=== PATIENT | female | born 2000 | race Two or more races ===

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

== ENCOUNTER 2020-06-07 09:02 | Observation (INO) | payer OTHER ==
[~2020-06-07] VITALS: Ht 154.9 cm; Wt 87.0 kg
[~2020-06-07 09:02] MED LIST: AZIT500T4 PO; HYDR-3165 PO; ONDA4TAB7 PO
[2020-06-07] MEDS ORDERED: CHARCOAL AQUA 25 GM/120 ML SUSPENSION. ONE (09:14)
[2020-06-07] MEDS ORDERED: CHARCOAL/SORBITOL 25 GM/120 ML SUSPENSION. ONE ×2 (09:15→09:23)
--- NOTE | 2020-06-07 09:26 | PHYS DOC ---
Past History Past Medical History: Anxiety, Depression, Fibromyalgia, Hypertension Past Surgical History: No Surgical History Smoking: Non-smoker Alcohol Use: None Drug Use: None Adult General Chief Complaint Chief Complaint: OVERDOSE HPI HPI Patient is a 19-year-old female presenting for overdose via ingestion. Onset was approximately 10 minutes prior to arrival at 0900 hrs. Patient was walking into our ER and ingested x13 60mg duloxetine tablets. States she lives at home with sister and sister's and kids. States she has tumultuous relationship with her sister. Past medical history includes fibromyalgia, depression, anxiety and PTSD. She has no prior suicidal attempts in the past. States she took said medications today and frustration, was not purposefully trying to end her life but rather, she wanted to " roll the dice". On evaluation, she is tearful, has ongoing thoughts of self-harm and SI. She self admits history of self harming behavior, has cut herself in the past and admits to bloodletting Review of Systems Review of Systems Fourteen body systems of review of systems have been reviewed. See HPI for pertinent positives and negative responses, other aguirre all other systems are negative, non-pertinent or non-contributory Current Medications Current Medications Current Medications Medications (Trade) Dose Ordered Sig/Gera Start Time Stop Time Status Last Admin Dose Admin Charcoal (Actidose-Aqua) 25 gm STK-MED ONCE 06/07/20 09:14 06/07/20 09:15 DC Allergies Allergies Allergies Coded Allergies Type Severity Reaction Last Updated Verified adhesive Allergy Severe 03/28/19 Yes phenylephrine Allergy Severe 03/28/19 Yes phenazopyridine Allergy Unknown DIARRHEA 03/28/19 Yes Physical Exam Physical Exam Constitutional: Well developed, well nourished, no acute distress, tearful, non- toxic appearance. HENT: Normocephalic, atraumatic, bilateral external ears normal, oropharynx moist, no oral exudates, nose normal. Eyes: PERRLA, EOMI, conjunctiva normal, no discharge. Neck: Normal range of motion, no tenderness, supple, no stridor. Cardiovascular: Heart rate regular, sinus rhythm, no murmurs rubs or gallops Lungs & Thorax: Bilateral breath sounds clear to auscultation Abdomen: Bowel sounds normal, soft, no tenderness, no masses, no pulsatile masses. Nonsurgical abdomen, no peritoneal signs Skin: Warm, dry, no erythema, no rash. Back: No tenderness, no CVA tenderness. Extremities: No tenderness, no cyanosis, no clubbing, ROM intact, no edema. Neurologic: Alert and oriented X 3, grossly normal motor & sensory function, no focal deficits noted. Psychologic: Tearful affect, depressed mood Current Patient Data Vital Signs Vital Signs Date Time Temp Pulse Resp B/P (MAP) Pulse Ox O2 Delivery O2 Flow Rate FiO2 06/07/20 09:02 98.2 125 16 167/83 (111) 99 Vital Signs Date Time Temp Pulse Resp B/P (MAP) Pulse Ox O2 Delivery O2 Flow Rate FiO2 06/07/20 09:02 98.2 125 16 167/83 (111) 99 Lab Results Laboratory Tests Test 06/07/20 09:18 06/07/20 09:35 06/07/20 09:41 06/07/20 09:47 White Blood Count 12.8 x10^3/uL Red Blood Count 4.00 x10^6/uL Hemoglobin 10.8 g/dL Hematocrit 32.9 % Mean Corpuscular Volume 82 fL Mean Corpuscular Hemoglobin 27 pg Mean Corpuscular Hemoglobin Concent 33 g/dL Red Cell Distribution Width 14.2 % Platelet Count 421 x10^3/uL Neutrophils (%) (Auto) 73 % Lymphocytes (%) (Auto) 18 % Monocytes (%) (Auto) 7 % Eosinophils (%) (Auto) 2 % Basophils (%) (Auto) 0 % Neutrophils # (Auto) 9.4 x10^3uL Lymphocytes # (Auto) 2.3 x10^3/uL Monocytes # (Auto) 0.9 x10^3/uL Eosinophils # (Auto) 0.2 x10^3/uL Basophils # (Auto) 0.1 x10^3/uL Sodium Level 140 mmol/L Potassium Level 3.4 mmol/L Chloride Level 104 mmol/L Carbon Dioxide Level 24 mmol/L Anion Gap 12 Blood Urea Nitrogen 9 mg/dL Creatinine 0.7 mg/dL Estimated GFR (Cockcroft-Gault) 107.8 BUN/Creatinine Ratio 13 Glucose Level 116 mg/dL Calcium Level 9.0 mg/dL Total Bilirubin 0.2 mg/dL Aspartate Amino Transf (AST/SGOT) 9 U/L Alanine Aminotransferase (ALT/SGPT) 22 U/L Alkaline Phosphatase 78 U/L Total Protein 7.2 g/dL Albumin 3.8 g/dL Albumin/Globulin Ratio 1.1 Salicylates Level < 2.8 mg/dL Salicylate Last Dose Date Unknown Salicylate Last Dose Time Unknown Acetaminophen Level < 2 mcg/mL Acetaminophen Last Dose Date Unknown Acetaminophen Last Dose Time Unknown Ethyl Alcohol Level < 10 mg/dL SARS-CoV-2 Antigen (Rapid) Negative Urine Collection Type Unknown Urine Color Yellow Urine Clarity Hazy Urine pH 6.0 Urine Specific [place] 1.015 Urine Protein Neg Urine Glucose (UA) Neg mg/dL Urine Ketones (Stick) Neg mg/dL Urine Blood Neg Urine Nitrite Neg Urine Bilirubin Neg Urine Urobilinogen Dipstick 0.2 mg/dL Urine Leukocyte Esterase Neg Urine RBC 1-2 /HPF Urine WBC 1-4 /HPF Urine Squamous Epithelial Cells Mod /LPF Urine Bacteria Mod /HPF Urine Opiates Screen Neg Urine Methadone Screen Neg Urine Barbiturates Neg Urine Phencyclidine Screen Neg Urine Amphetamine/Methamphetamine Neg Urine Benzodiazepines Screen Neg Urine Cocaine Screen Neg Urine Cannabinoids Screen Neg Urine Ethyl Alcohol Neg Bedside Urine HCG, Qualitative hcg negative Current Medications Medications (Trade) Dose Ordered Sig/Gera Route PRN Reason Start Time Stop Time Status Last Admin Dose Admin Charcoal (Actidose-Aqua) 25 gm STK-MED ONCE .ROUTE 06/07/20 09:14 06/07/20 09:15 DC Charcoal/Sorbitol (Actidose Sorbitol) 25 gm STK-MED ONCE .ROUTE 06/07/20 09:15 06/07/20 09:15 DC Sodium Chloride 1,000 ml @ 1,000 mls/hr 1X ONCE IV 06/07/20 09:30 06/07/20 10:29 DC 06/07/20 09:27 Charcoal/Sorbitol (Actidose Sorbitol) 25 gm STK-MED ONCE .ROUTE 06/07/20 09:23 06/07/20 09:23 DC Charcoal/Sorbitol (Actidose Sorbitol) 25 gm 1X ONCE PO 06/07/20 09:30 06/07/20 09:31 DC 06/07/20 09:32 Sodium Chloride 1,000 ml @ 1,000 mls/hr 1X ONCE IV 06/07/20 10:30 06/07/20 11:29 DC 06/07/20 10:40 Lorazepam (Ativan Inj) 2 mg 1X ONCE IVP 06/07/20 10:45 06/07/20 10:46 DC 06/07/20 10:40 EKG EKG EKG ordered and interpreted by myself at 0915 hrs. as sinus tachycardia 138 bpm, unremarkable intervals, no axis deviation, T wave inversions noted in leads III otherwise no STEMI Radiology/Procedures Radiology/Procedures [] Heart Score C/O Chest Pain: No HEART Score for Chest Pain: HEART Score for Chest Pain Response (Comments) Value History Slighlty/Non-Suspicious 0 ECG Normal 0 Age < 45 0 Risk Factors 1 or 2 Risk Factors 1 Total 1 Risk Factors: Risk Factors: DM, Current or recent (<one month) smoker, HTN, HLP, family history of CAD, obesity. Risk Scores: Risk Factors: DM, Current or recent (<one month) smoker, HTN, HLP, family history of CAD, obesity. Course & Med Decision Making Course & Med Decision Making Patient tachycardic on arrival. History for overdose of x13 60 mg Cymbalta/duloxetine tablets. Physical exam unremarkable IV access obtained. 1 L IV normal saline bolus. Given onset of ingestion was approximately 15 minutes prior to arrival, decision was made to administer activated charcoal Poison control was contacted and case discussed. Reviewed basic vital signs, HPI, physical exam findings and EKG with. They agreed for administration of activated charcoal, continued supportive care with IV fluid rehydration and benzodiazepine PRN, 6 to 12-hour OBS recommended Patient given 2 mg IV Ativan due to persistent sinus tachycardia after 1 L IV normal saline fluid bolus and subsequent increase in blood pressure to 150s/90s, she tolerated this well Discussed case with on-call hospitalist who agreed need for admission and accepted patient under his care. Patient updated on proposed plan of care that involved hospital admission for continued medical treatment and eventual PAT team evaluation, she remains amenable All questions and concerns addressed prior to transportation to [facility] for admission Critical Care Time This patient required critical care. Due to the fact that the patient required a significant amount of one on one physician - patient contact time, ordering and review of studies, arranging urgent treatment with development of a management plan, evaluation of patients response to treatment with frequent reassessments, and discussions with other providers this patient required 40 minutes of critical care time. Critical care time was indicated due to the inherent instability and/or potential for instability in this patient. The critical care time that is allocated to this patient is above and beyond any time spent on any other billable procedures performed on this patient. Dragon Disclaimer Dragon Disclaimer This electronic medical record was generated, in whole or in part, using a voice recognition dictation system. Departure Departure: Impression: Primary Impression: Overdose Additional Impressions: Suicidal ideation Depression Disposition: ADMITTED INPT THIS HOSP Admitting Physician: Kee Chambers Condition: STABLE Referrals: AQUILINO HOLGUIN NP (PCP) Problem Qualifiers BERTIN ALBA DO Jun 07, 2020 09:26
[2020-06-07] MEDS ORDERED: IV NORMAL SALINE 1,000ML 1,000 ML IV ONE ×2 (09:30→10:30)
[2020-06-07] MEDS ORDERED: CHARCOAL/SORBITOL 25 GM/120 ML SUSPENSION. PO ONE (09:30)
--- NOTE | 2020-06-07 09:34 | EKG ---
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
[2020-06-07 09:43] LABS: BASO # 0.1 x10^3/uL (0.0-0.2); BASO % 0 % (0-3); EOS # 0.2 x10^3/uL (0.0-0.7); EOS % 2 % (0-3); HEMATOCRIT 32.9 % (36.0-47.0); HEMOGLOBIN 10.8 g/dL (12.0-15.5); LYMPH # 2.3 x10^3/uL (1.0-4.8); LYMPH % 18 % (24-48); MEAN CORPUSCULAR HEMOGLOBIN 27 pg (25-35); MEAN CORPUSCULAR HGB CONC 33 g/dL (31-37); MEAN CORPUSCULAR VOLUME 82 fL (79-100); MONO # 0.9 x10^3/uL (0.0-1.1); MONO % 7 % (0-9); NEUT # 9.4 x10^3uL (1.8-7.7); NEUT % 73 % (31-73); PLATELET COUNT 421 x10^3/uL (140-400); RED CELL DISTRIBUTION WIDTH 14.2 % (11.5-14.5); WHITE BLOOD COUNT 12.8 x10^3/uL (4.0-11.0)
[2020-06-07 09:50] LABS: CREATININE 0.7 mg/dL (0.6-1.0); GFR 107.8; POTASSIUM 3.4 mmol/L (3.5-5.1)
[2020-06-07 09:54] LABS: ACETAMIN < 2 mcg/mL (10-30); ETHANOL < 10 mg/dL (0-10); SALIC < 2.8 mg/dL (2.8-20.0)
[2020-06-07 09:56] LABS: ALBUMIN 3.8 g/dL (3.4-5.0); ALBUMIN/GLOBULIN RATIO 1.1 (1.0-1.7); TOTAL BILIRUBIN 0.2 mg/dL (0.2-1.0); TOTAL PROTEIN 7.2 g/dL (6.4-8.2)
[2020-06-07 10:05] LABS: BARBITURATES NEG (NEG); BENZODIAZEPINES NEG (NEG); CANNABINOIDS NEG (NEG); COCAINE NEG (NEG); METHADONE NEG (NEG); OPIATES NEG (NEG); PHENCYCLIDINE NEG (NEG)
[2020-06-07 10:06] LABS: AMPHETAMINE/METHAMPHETAMINE NEG (NEG)
[2020-06-07 10:11] LABS: BACTERIA,URINE MOD /HPF (0-FEW); BILIRUBIN,URINE NEG (NEG); CLARITY,URINE HAZY; COLOR,URINE YELLOW; GLUCOSE,URINE NEG (NEG); NITRITE,URINE NEG (NEG); UROBILINOGEN,URINE 0.2 mg/dL (0.2 mg/dL)
[2020-06-07 10:12] LABS: SQUAMOUS EPITHELIAL CELL,UR MOD /LPF
[2020-06-07] MEDS ORDERED: HYDR25TA PO (10:31)
[2020-06-07] MEDS ORDERED: CYCL-331 PO (10:32)
[2020-06-07] MEDS ORDERED: DULO60CA6 PO (10:33)
[2020-06-07] MEDS ORDERED: DESO1TAB PO (10:33)
[2020-06-07] MEDS ORDERED: ACETAMINOPHEN 325 MG TABLET PO PRN (12:00)
[2020-06-07 13:23] VITALS: BP 116/73
[2020-06-07] MEDS ORDERED: ALBU2.5V8 IH (14:41)
[2020-06-07] MEDS ORDERED: ALBUTEROL SULFATE 8GM INHALER. INH PRN (15:30)
[2020-06-07 19:07] VITALS: BP 116/75
[2020-06-07 23:15] VITALS: BP 119/79
[2020-06-08 07:00] VITALS: BP 128/86
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
== END 2020-06-08 11:30 | disposition home or self-care (01) ==
LOC: EEVIPCON 09:02 → ER 09:02 → 1 SOUTH 11:50 → INTOOBSV 11:50
PROVIDERS: ADMIT Hospitalist; ATTEND Hospitalist
DX: T43.212A Poisoning by selective serotonin and norepinephrine reuptake inhibitors, intentional self-harm, initial encounter (principal); Z20.822 Contact with and (suspected) exposure to COVID-19; I10 Essential (primary) hypertension; F32.9 Major depressive disorder, single episode, unspecified; F41.9 Anxiety disorder, unspecified; F43.10 Post-traumatic stress disorder, unspecified; M79.7 Fibromyalgia; Z91.410 Personal history of adult physical and sexual abuse; Z91.5 Personal history of self-harm; Z79.899 Other long term (current) drug therapy
CPT/HCPCS: 36415; 80053; 80307; 80329; 81001; 81025; 85025; 87086; 87426; 93005; 96361; 96374; 99291; G0378; G0480; J2060; J7030; U0003; G0379